=== PATIENT | female | born 1985 | race Caucasian/White ===

== ENCOUNTER → 2023-01-05 | Outpatient (CLI) | payer BC ==
--- NOTE | 2023-01-05 08:01 | MM ---
Reason for Exam: Clinical finding. Patient History: Menarche at age 14. Hormonal Contraceptives, from age 22 until age 23. Maternal grandmother had breast cancer, age 65. Maternal aunt had breast cancer, age 53. Last menstrual period: 12/29/2022 Risk Values: Shabana 5 year model risk: 0.2%. NCI Lifetime model risk: 7.5%. Tissue Density: The breast tissue is heterogeneously dense. This may lower the sensitivity of mammography. Findings: Analyzed By CAD. No suspicious masses, calcifications or distortions. No abnormality to correlate with patient's tenderness/lump, should be noted patient cannot identify area. Overall Assessment: Incomplete: need additional imaging evaluation, BI-RAD 0 Management: Diagnostic Breast Ultrasound of both breasts. A clinical breast exam by your physician is recommended on an annual basis and results should be correlated with mammographic findings. This exam should not preclude additional follow-up of suspicious palpable abnormalities. Results were given to the patient verbally at the time of exam. Electronically signed and approved by: Kelvin Oquendo DO
--- NOTE | 2023-01-05 11:28 | USB ---
Reason for Exam: Clinical finding. Patient History: Menarche at age 14. Hormonal Contraceptives, from age 22 until age 23. Maternal grandmother had breast cancer, age 65. Maternal aunt had breast cancer, age 53. Risk Values: Shabana 5 year model risk: 0.2%. NCI Lifetime model risk: 7.5%. Technique: Method: Targeted. Findings: The upper outer quadrant of the left breast, the lower section of the breast of the right breast, the axilla of both breasts and the retroareolar of both breasts were scanned. A complete US of all four quadrants of the breast, axilla and retro-areolar region were reviewed. No solid or cystic masses are identified.A complete US of all four quadrants of the bilateral breasts, axilla and retro-areolar region were reviewed. No solid or cystic masses are identified.A complete US of all four quadrants of the bilateral breasts, axilla and retro-areolar region were reviewed. No solid or cystic masses are identified. No finding to correlate with patient's palpable abnormality. Overall Assessment: Negative, BI-RAD 1 Management: Screening Mammogram of both breasts at age 41. Clinical management for patient's symptoms. A clinical breast exam by your physician is recommended on an annual basis and results should be correlated with mammographic findings. This exam should not preclude additional follow-up of suspicious palpable abnormalities. Results were given to the patient verbally at the time of exam. Electronically signed and approved by: Kelvin Oquendo DO
== END | disposition home or self-care (01) ==
LOC: RADMAMWWP 07:25
PROVIDERS: ATTEND Obstetrics & Gynecology
DX: R92.2 Inconclusive mammogram (principal); Z80.3 Family history of malignant neoplasm of breast
CPT/HCPCS: 77062; 77066